=== PATIENT | female | born 1940 | race Caucasian/White ===

== ENCOUNTER → 2016-07-18 | Outpatient (CLI) | payer BC ==
[~2016-07-18] MED LIST: CYAN100020 PO; HRBLS PO; LISI-729 PO; LORA-741 PO; MULT-845 PO; OMEG10007 PO; PERM1CRE TOP; PRLSR20 PO
[2016-07-18 10:53] LABS: BASO % 1.4 %; BASO ABS # 0.09 K/uL (0-0.2); COMPLETE YES; EOS % 2.4 %; HEMATOCRIT 37.9 % (37-47); IG% 0.3 %; LYMPH % 31.9 %; LYMPH ABS # 2.12 K/uL (1.2-3.4); MEAN CELL VOLUME 94.3 fL (80-100); MEAN CORPUSCULAR HEMOGLOBIN 31.6 pg (25-34); MEAN CORPUSCULAR HGB CONC 33.5 g/dl (32-36); MEAN PLATELET VOLUME 9.3 fL (7.4-10.4); MONO % 8.4 %; NEUT % 55.6 %; PLATELET COUNT 412 K/uL (130-400); RED BLOOD COUNT 4.02 M/uL (4.2-5.4); WHITE BLOOD COUNT 6.64 K/uL (4.8-10.8)
[2016-07-18 11:04] LABS: ALT/SGPT 24 U/L (12-78); AST/SGOT 19 U/L (15-37); BLOOD UREA NITROGEN 14 mg/dl (7-18); BUN/CREATININE RATIO 22.5 (10-20); CALCIUM 8.9 mg/dl (8.5-10.1); CARBON DIOXIDE 31 mmol/L (21-32); CHLORIDE 109 mmol/L (98-107); CHOLESTEROL 187 mg/dl (0-200); CREATININE 0.64 mg/dl (0.60-1.20); GLUCOSE 89 mg/dl (70-99); POTASSIUM 4.1 mmol/L (3.5-5.1); SODIUM 144 mmol/L (136-145)
[2016-07-18 11:15] LABS: ALB/GLOB RATIO 0.9 (0.9-2); ALKALINE PHOSPHATASE 77 U/L (45-117); CHOLESTEROL/HDL RATIO 2.1; HDL CHOLESTEROL 87 mg/dl; LDL CHOLESTEROL CALCULATED 91 mg/dl; TRIGLYCERIDES 46 mg/dl (0-150); VERY LOW DENSITY LIPOPROT CALC 9 mg/dl
--- NOTE | 2016-07-23 11:07 | CODING QUERY MEDICAL NECESSITY ---
SUPPORTING DIAGNOSIS NEEDED Dr. Armas, A supporting diagnosis is required for the test/procedure performed on this patient in order for us to be reimbursed by the patient's insurance. Please provide a supporting diagnosis for the following test/procedure listed below next to the test name along with your signature. *If there is no additional diagnosis for this patient that would support the following test/procedure please document that below next to the test/procedure. Test(s)/Procedure(s) that require a supporting diagnosis: * ([id number]) VITAMIN D ASSAY DIAGNOSIS: DATE OF SERVICE: 07/18/16 Provider Signature: Date: Thank you Christopher Magdaleno [facility] Information Management Once completed, please kindly fax back to [phone] For questions please call [phone]
== END | disposition home or self-care (01) ==
LOC: C.LABBC 08:58
PROVIDERS: ATTEND Internal Medicine
DX: G25.0 Essential tremor (principal); M85.80 Other specified disorders of bone density and structure, unspecified site

== ENCOUNTER → 2016-12-14 | Outpatient (CLI) | payer BC ==
--- NOTE | 2016-12-14 15:33 | MAMMOGRAPHY REPORT ---
BILATERAL DIGITAL SCREENING MAMMOGRAM WITH CAD: 12/14/2016 CLINICAL HISTORY: Routine screening. Patient has no complaints. TECHNIQUE: Current study was also evaluated with a Computer Aided Detection (CAD) system. Bilateral CC and MLO views were obtained. COMPARISON: Comparison is made to exams dated: 12/13/2015 mammogram, 11/17/2014 mammogram, 12/03/2013 ma mmogram, 11/23/2013 mammogram, 11/16/2013 mammogram, and 11/05/2012 mammogram - [facility]. BREAST COMPOSITION: There are scattered areas of fibroglandular density in both breasts. FINDINGS: No suspicious masses, calcifications, or areas of architectural distortion are noted in ei ther breast. There has been no significant interval change compared to prior exams. Scattered bilater al benign-appearing calcifications are not significantly changed. IMPRESSION: ACR BI-RADS CATEGORY 2: BENIGN There is no mammographic evidence of malignancy. A 1 year screening mammogram is recommended. The pa tient will receive written notification of the results. Approximately 10% of breast cancers are not detected with mammography. A negative mammographic report should not delay biopsy if a clinically suggestive mass is present. Yulia Norman M.D. ah/:12/14/2016 11:53:43 Bias Machine Operator Helper: Sonal CARCAMO(Juan)(Latonya)(BD), [facility] letter sent: Normal 1/2 BI-RADS Code: ACR BI-RADS Category 2: Benign
== END | disposition home or self-care (01) ==
LOC: C.MAMM 10:55
PROVIDERS: ATTEND Internal Medicine
DX: Z12.31 Encounter for screening mammogram for malignant neoplasm of breast (principal)

== ENCOUNTER → 2017-01-23 | Outpatient (CLI) | payer BC ==
[2017-01-23 10:59] LABS: BASO % 1.3 %; BASO ABS # 0.09 K/uL (0-0.2); COMPLETE YES; HEMATOCRIT 40.4 % (37-47); IG% 0.1 %; LYMPH % 33.1 %; LYMPH ABS # 2.34 K/uL (1.2-3.4); MEAN CELL VOLUME 96.4 fL (80-100); MEAN CORPUSCULAR HEMOGLOBIN 32.2 pg (25-34); MEAN CORPUSCULAR HGB CONC 33.4 g/dl (32-36); MEAN PLATELET VOLUME 9.8 fL (7.4-10.4); MONO % 5.8 %; NEUT % 56.7 %; PLATELET COUNT 327 K/uL (130-400); RED BLOOD COUNT 4.19 M/uL (4.2-5.4); WHITE BLOOD COUNT 7.06 K/uL (4.8-10.8)
[2017-01-23 11:39] LABS: ALT/SGPT 17 U/L (12-78); BLOOD UREA NITROGEN 22 mg/dl (7-18); BUN/CREATININE RATIO 35.2 (10-20); CALCIUM 9.3 mg/dl (8.5-10.1); CARBON DIOXIDE 29 mmol/L (21-32); CHLORIDE 109 mmol/L (98-107); CREATININE 0.62 mg/dl (0.60-1.20); GLUCOSE 82 mg/dl (70-99); POTASSIUM 4.1 mmol/L (3.5-5.1); SODIUM 142 mmol/L (136-145)
[2017-01-23 11:42] LABS: ALB/GLOB RATIO 0.9 (0.9-2); ALKALINE PHOSPHATASE 75 U/L (45-117); AST/SGOT 17 U/L (15-37)
== END | disposition home or self-care (01) ==
LOC: C.LABBC 08:55
PROVIDERS: ATTEND Internal Medicine
DX: G14 Postpolio syndrome (principal); I10 Essential (primary) hypertension

== ENCOUNTER → 2017-06-17 | Outpatient (CLI) | payer BC ==
[2017-06-17 13:29] LABS: BASO % 1.3 %; BASO ABS # 0.08 K/uL (0-0.2); EOS % 2.2 %; EOS ABS # 0.14 K/uL (0-0.5); HEMATOCRIT 38.7 % (37-47); LYMPH % 41.6 %; LYMPH ABS # 2.59 K/uL (1.2-3.4); MEAN CELL VOLUME 96.5 fL (80-100); MEAN CORPUSCULAR HEMOGLOBIN 32.4 pg (25-34); MEAN CORPUSCULAR HGB CONC 33.6 g/dl (32-36); MEAN PLATELET VOLUME 9.7 fL (7.4-10.4); MONO % 7.4 %; MONO ABS # 0.46 K/uL (0.11-0.59); NEUT % 47.5 %; NEUT ABS # 2.96 K/uL (1.4-6.5); PLATELET COUNT 322 K/uL (130-400); RED CELL DISTRIBUTION WIDTH CV 15.3 % (11.5-14.5); RED CELL DISTRIBUTION WIDTH SD 54.3 fL (36.4-46.3); WHITE BLOOD COUNT 6.23 K/uL (4.8-10.8)
[2017-06-17 15:10] LABS: ALBUMIN 3.5 gm/dl (3.4-5.0); ALKALINE PHOSPHATASE 67 U/L (45-117); ALT/SGPT 22 U/L (12-78); AST/SGOT 15 U/L (15-37); BLOOD UREA NITROGEN 15 mg/dl (7-18); CALCIUM 9.2 mg/dl (8.5-10.1); CARBON DIOXIDE 27 mmol/L (21-32); CREATININE 0.66 mg/dl (0.60-1.20); GLUCOSE 86 mg/dl (70-99); POTASSIUM 4.3 mmol/L (3.5-5.1); SODIUM 138 mmol/L (136-145)
== END | disposition home or self-care (01) ==
LOC: C.LABBC 11:39
PROVIDERS: ATTEND Internal Medicine
DX: R53.83 Other fatigue (principal)

== ENCOUNTER → 2017-08-03 | Outpatient (CLI) | payer BC | END | disposition home or self-care (01) | LOC: C.LABSPEC 11:32 | PROVIDERS: ATTEND Internal Medicine | DX: R39.9 Unspecified symptoms and signs involving the genitourinary system (principal) ==

== ENCOUNTER 2021-02-05 01:58 | Inpatient (IN) ==
[2021-02-05 02:35] LABS: Basophils # (auto) 0.04 K/uL (0-0.2); Basophils % (auto) 0.4 %; Eosinophils # (auto) 0.18 K/uL (0-0.5); Eosinophils % (auto) 1.7 %; Hematocrit (blood only) 43.3 % (37-47); Hemoglobin 15.1 g/dL (12.0-16.0); Immature Granulocytes # (auto) 0.02 K/uL (0.00-0.02); Immature Granulocytes % (auto) 0.2 %; Lymphocytes # (auto) 3.69 K/uL (1.2-3.4); Lymphocytes % (auto) 34.3 %; Mean Corpuscular Hgb Conc 34.9 g/dL (32-36); Mean Corpuscular Volume 100.2 fL (80-100); Mean Platelet Volume 9.5 fL (7.4-10.4); Monocytes # (auto) 0.67 K/uL (0.11-0.59); Monocytes % (auto) 6.2 %; Neutrophils # (auto) 6.17 K/uL (1.4-6.5); Neutrophils % (auto) 57.2 %; Platelet Count 332 K/uL (130-400); RDW Coefficient of Variation 14.6 % (11.5-14.5); RDW Standard Deviation 53.6 fL (36.4-46.3); Red Blood Count 4.32 M/uL (4.2-5.4); White Blood Count 10.77 K/uL (4.8-10.8)
[2021-02-05 02:56] LABS: Appearance Urine Clear (Clear); Bacteria Urine Automated Negative (Negative); Bilirubin Urine Negative (Negative); Blood Urine Trace (Negative); Cast Urine Automated 0 /lpf (0-5); Color Urine Yellow; Epithelial Cell Urine Auto >30 /lpf (0-5); Glucose Urine UA Negative (Negative); Ketones Urine Negative (Negative); Leukocyte Esterase Urine 2+ (Negative); Nitrite Urine Negative (Negative); Protein Urine Negative (Negative); RBC Urine Automated 0-4 /hpf (0-4); Specific Gravity Urine 1.015 (1.000-1.030); Urobilinogen Urine Negative (Negative); WBC Urine Automated >30 /hpf (0-5)
[2021-02-05 03:02] LABS: Albumin Globulin Ratio 0.8 (0.9-2); Albumin Level 3.7 gm/dl (3.4-5.0); BUN Creatinine Ratio 19.3 (10-20); Bilirubin,Total 0.5 mg/dl (0.2-1); Calcium 9.2 mg/dl (8.5-10.1); Creatinine Clr Calc Pharmacy 42.4 ml/min; Est GFR (African American) 69.1 ml/min; Est GFR (Non-African American) 59.6 ml/min; Globulin 4.5 gm/dl (2.5-4.0); Total Protein 8.2 gm/dl (6.4-8.2)
[2021-02-05] MEDS ORDERED: HYDROmorphone INJ 1 MG/ML SYRINGE IV STA (03:09)
[2021-02-05] MEDS ORDERED: ONDANSETRON INJ 2 MG/ML 2 ML VIAL IV STA (03:09)
[2021-02-05] MEDS ORDERED: OPTIRAY 320 100ml IV ONE (04:01)
[2021-02-05 04:03] LABS: Potassium 4.1 mmol/L (3.5-5.1)
--- NOTE | 2021-02-05 05:06 | Emergency Department Note ---
Impression & Plan Partial small bowel obstruction The patient will be evaluated by the [facility] service ED Provider Note NAME: JOSEFINA EVANS AGE: 80 SEX: F ARRIVES VIA: Family Vehicle INFORMANT: [Patient ED PROVIDER(S): Jewels Bell DO CHIEF COMPLAINT: Abdominal pain PLAN: Disposition: Admission by the [facility] service Condition: Fair MEDICAL DECISION MAKING: This is a 80-year-old female patient who presents to emergency department with abdominal pain since 1:00 this afternoon. The patient has never had pain like this in the past. She has become nauseated. She feels bloated. The patient received IV analgesia and IV antiemetics here in the emergency department. CT scan shows evidence of a partial small bowel obstruction. Patient has had a remote history of a abdominal hysterectomy in 1978. She was placed on IV normal saline and bowel rest. She had no episodes of vomiting here in the emergency department. Triage Nursing notes reviewed and agree with them. Vital Signs: reviewed and remarkable for hypertension Differential diagnosis: Pancreatitis, cholecystitis, diverticulitis, ulcerative disease, gastritis, colitis, appendicitis ER treatment provided: IV Dilaudid and IV Zofran She was started on IV normal saline drip and the IV Dilaudid was repeated. Diagnostics interpreted by me: ECG: Normal sinus rhythm at a rate of [address] segment elevation or signs of ischemia. There is no ectopy. Cardiac Monitoring: Normal sinus rhythm at a rate of 80 Laboratory studies: See below Imaging studies: As per stat rad CT ABDOMEN & PELVIS With Contrast: Dilated loops of small bowel in the pelvis with some areas of fecal-like material in the small bowel. The findings are likely related to at least partial small bowel obstruction there appears to be an abrupt decision to nondilated small bowel within the left pelvis. No free intraperitoneal air or fluid. No other acute findings. An appendix is not clearly identified; however, there is no clear evidence of a distended appendix or regional inflammatory reaction. Diverticulosis without diverticulitis. HPI: 80/F arrives for evaluation of abdominal pain. The patient complains of abdominal pain and nausea over the past 8 hours. She describes significant bloating. She states that she just cannot get comfortable. She denies ever having pain like this in the past. Patient's only past surgical history is a previous hysterectomy many many years ago. Patient denies any urinary symptoms or diarrhea. ROS: See above HPI for pertinent positives & negatives. A total of 10 systems reviewed and were otherwise negative. PAST MEDICAL HISTORY:See Below PAST SURGICAL HISTORY:See Below FAMILY HISTORY:See Below SOCIAL HISTORY:See Below HOME MEDICATIONS:See list ALLERGIES:See list VITALS:See Below PHYSICAL EXAMINATION: HEENT: Head - normocephalic and atraumatic Pupils are equal, round, and reactive to light. Extraocular eye muscles are intact, and sclera are anicteric. Nose - moist nasal mucosa without discharge. Mouth - moist buccal mucosa. Oropharynx is nonerythematous and there is no tonsillar exudate or edema noted. Neck: Supple; no cervical lymphadenopathy or thyromegaly Heart: Regular rate and rhythm. There is a normal S1 and S2 with no murmurs, clicks, or gallops appreciated. Lungs: Clear to auscultation bilaterally with no wheezes, rales, or rhonchi. Abdomen: Soft, with mild tenderness to palpation just above the umbilicus. The patient has hypoactive bowel sounds. There are no palpable pulsatile masses or hepatosplenomegaly. There is no guarding, rigidity, or rebound noted. Extremities: No evidence of cyanosis, clubbing, or edema. There are easily palpable peripheral pulses. Skin: warm and dry with good turgor and no rashes. ED COURSE: Times/Reassessments: 0225: The patient was evaluated in room C3. A complete history and physical was performed. An IV lock was initiated and labs are drawn as above. The patient was given IV Dilaudid and Zofran for pain and nausea. She will go for CT scan of the abdomen and pelvis. A twelve-lead EKG was obtained as described above. An order was placed for continuous cardiac monitoring. The patient is in a normal sinus rhythm at a rate of 80. Upon repeat evaluation, the patient stated the pain was coming back. She will be given another dose of IV Dilaudid and started on a normal saline drip. I discussed the case with the [facility] hospitalist group and they will evaluate for further management Jewels Bell DO Past Med/Surg History Medical History Atelectasis, left Benign familial tremor Chronic pain syndrome Contact dermatitis Hypertension Insomnia Left hip pain Osteopenia Post-polio syndrome Precordial chest pain Reactive depression (situational) Second hand smoke exposure Syncope Surgical History H/O laparoscopy diagnostic History of dilation and curettage History of oral surgery History of repair of rotator cuff History of tonsillectomy History of total abdominal hysterectomy Family History Mother COPD (chronic obstructive pulmonary disease) Father Lung cancer Unknown Heart disease Parkinson disease Brother Myocardial infarction Diabetes Sister Diabetes Denies family history of Ovarian cancer Prostate cancer Breast cancer Colorectal cancer Stroke Social History Smoking Status: Never smoker Second Hand Exposure: No; Hx Alcohol Use: Yes Alcohol type: beer and wine Alcohol Intake Frequency: 4 or More x per/Week Hx Substance Use: No Preferred Language: Cymro Communication Ability: Effective Visual Impairment: Limited Hearing Ability: Normal Senior Storage Administrator Required: No marital status: / Current Living Situation: Alone and Other 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 How many Children do You have: 0 Feels Safe at Home: Yes Childhood Exposure to Second-Hand Smoke: Yes caffeine: Yes Dental Care, Regularly: Yes Physical Activity Frequency: 5-6 Times per Week Seatbelt Use: always Sunscreen Use: Yes Allergies Allergies Allergy/AdvReac Type Severity Reaction Status Date / Time codeine Allergy Nausea Verified 02/05/21 07:19 nitrofurantoin Allergy Verified 02/05/21 07:19 adhesive AdvReac Intermediate rash Verified 02/05/21 07:19 Home Meds Home Medications Medication Instructions Recorded Confirmed multivitamin (Daily Multi-Vitamin) 1 tab PO QAM 03/04/18 02/05/21 omega 3 350 mg-dha 235 mg-epa 90 See Rx Instructions .ROUTE .COMPLEX 03/04/18 02/05/21 mg-fish oil 597 mg capsule,delay rel ([place]-3) cyanocobalamin (vitamin B-12) 1,000 mcg PO Q2D 10/26/19 02/05/21 1,000 mcg tablet (Vitamin B-12) d-mannose 500 mg capsule (AZO 1,000 mg PO BID cap 10/07/20 02/05/21 D-Mannose) magnesium oxide 400 mg PO DAILY PRN 11/07/20 02/05/21 ascorbic acid (vitamin C) 1,000 mg 1,000 mg PO QAM 02/05/21 02/05/21 tablet (Vitamin C) cholecalciferol (vitamin D3) 50 3,000 unit PO QAM 02/05/21 02/05/21 mcg (2,000 unit) capsule (Vitamin D3) fluticasone 113 mcg-salmeterol 14 1 inh INH BID 02/05/21 02/05/21 mcg/actuation breath activated powdr (AirDuo RespiClick) lisinopril 10 mg tablet (Zestril) 10 mg PO QAM 02/05/21 02/05/21 lorazepam 0.5 mg tablet (Ativan) 0.5 - 1 mg PO DAILY PRN 02/05/21 02/05/21 Previous Rx's Medication Instructions Recorded metoprolol tartrate 25 mg tablet 25 mg PO Q12H PRN #15 tab 04/20/20 Results & Data (ED) Vital Signs Vital Signs - 24 hr 02/05/21 02:07 02/05/21 04:06 02/05/21 05:43 Temperature 36.5 C Temperature Source Temporal Artery Scan Pulse Rate 82 Pulse Rate [Apical] 80 80 Pulse Rate from SpO2 Sensor Pulse Rhythm [Apical] Regular Regular Pulse Strength [Apical] Normal Normal Respiratory Rate 20 16 16 Respiratory Effort / Characteristics Non-Labored Spontaneous Non-Labored Spontaneous Respiratory Depth Normal Normal Blood Pressure 143/77 H Blood Pressure [Right Arm] 172/78 H 155/67 H Blood Pressure Mean 99 Blood Pressure Mean [Right Arm] 109 96 Blood Pressure Position [Right Arm] Sitting Pulse Oximetry 97 93 95 Oxygen Delivery Method Room Air Room Air Room Air Sepsis Recent Fever Within 48 Hours No Sepsis New/Unexplained Change in Mental Status N/A Sepsis Action Taken by Nursing No Action Required 02/05/21 07:00 02/05/21 08:00 02/05/21 08:15 Temperature Temperature Source Pulse Rate 68 67 73 Pulse Rate [Apical] Pulse Rate from SpO2 Sensor 69 67 74 Pulse Rhythm [Apical] Pulse Strength [Apical] Respiratory Rate 18 11 L 14 Respiratory Effort / Characteristics Respiratory Depth Blood Pressure 122/68 Blood Pressure [Right Arm] Blood Pressure Mean 86 Blood Pressure Mean [Right Arm] Blood Pressure Position [Right Arm] Pulse Oximetry 99 97 97 Oxygen Delivery Method Room Air Room Air Room Air Sepsis Recent Fever Within 48 Hours Sepsis New/Unexplained Change in Mental Status Sepsis Action Taken by Nursing 02/05/21 08:30 02/05/21 09:00 02/05/21 11:00 Temperature Temperature Source Pulse Rate 74 65 67 Pulse Rate [Apical] Pulse Rate from SpO2 Sensor 74 67 Pulse Rhythm [Apical] Pulse Strength [Apical] Respiratory Rate 15 13 12 Respiratory Effort / Characteristics Respiratory Depth Blood Pressure 119/63 145/65 H Blood Pressure [Right Arm] Blood Pressure Mean 81 91 Blood Pressure Mean [Right Arm] Blood Pressure Position [Right Arm] Pulse Oximetry 98 94 Oxygen Delivery Method Room Air Sepsis Recent Fever Within 48 Hours Sepsis New/Unexplained Change in Mental Status Sepsis Action Taken by Nursing 02/05/21 12:00 02/05/21 14:38 02/05/21 15:08 Temperature Temperature Source Pulse Rate 72 72 Pulse Rate [Apical] 70 Pulse Rate from SpO2 Sensor Pulse Rhythm [Apical] Pulse Strength [Apical] Respiratory Rate 16 16 16 Respiratory Effort / Characteristics Non-Labored Respiratory Depth Normal Blood Pressure 128/60 128/62 Blood Pressure [Right Arm] 139/75 Blood Pressure Mean 82 84 Blood Pressure Mean [Right Arm] 96 Blood Pressure Position [Right Arm] Pulse Oximetry 94 94 95 Oxygen Delivery Method Room Air Room Air Sepsis Recent Fever Within 48 Hours Sepsis New/Unexplained Change in Mental Status Sepsis Action Taken by Nursing 02/05/21 15:19 Temperature Temperature Source Pulse Rate Pulse Rate [Apical] Pulse Rate from SpO2 Sensor Pulse Rhythm [Apical] Pulse Strength [Apical] Respiratory Rate Respiratory Effort / Characteristics Respiratory Depth Blood Pressure Blood Pressure [Right Arm] Blood Pressure Mean Blood Pressure Mean [Right Arm] Blood Pressure Position [Right Arm] Pulse Oximetry Oxygen Delivery Method Room Air Sepsis Recent Fever Within 48 Hours Sepsis New/Unexplained Change in Mental Status Sepsis Action Taken by Nursing Laboratory Data Result diagrams: 02/05/21 00:25 02/05/21 03:44 Lab Results 02/05/21 02/05/21 02/05/21 Range/Units 00:25 00:25 00:25 WBC 10.77 (4.8-10.8) K/uL RBC 4.32 (4.2-5.4) M/uL Hgb 15.1 (12.0-16.0) g/dL Hct 43.3 (37-47) % MCV 100.2 H (80-100) fL MCH 35.0 H (25-34) pg MCHC 34.9 (32-36) g/dL RDW Std Deviation 53.6 H (36.4-46.3) fL RDW Coeff of Sandip 14.6 H (11.5-14.5) % Plt Count 332 (130-400) K/uL MPV 9.5 (7.4-10.4) fL Immature Gran % (Auto) 0.2 % Neut % (Auto) 57.2 % Lymph % (Auto) 34.3 % [place] % (Auto) 6.2 % Eos % (Auto) 1.7 % Baso % (Auto) 0.4 % Neut # (Auto) 6.17 (1.4-6.5) K/uL Lymph # (Auto) 3.69 H (1.2-3.4) K/uL [place] # (Auto) 0.67 H (0.11-0.59) K/uL Eos # (Auto) 0.18 (0-0.5) K/uL Baso # (Auto) 0.04 (0-0.2) K/uL Immature Gran # (Auto) 0.02 (0.00-0.02) K/uL Sodium 139 (136-145) mmol/L Potassium (3.5-5.1) mmol/L Chloride 106 (98-107) mmol/L Carbon Dioxide 29 (21-32) mmol/L Anion Gap 4.0 (3-11) BUN 18 (7-18) mg/dl Creatinine 0.91 (0.6-1.2) mg/dl Est Cr Clr Drug Dosing 42.4 ml/min Est GFR ( Amer) 69.1 ml/min Est GFR (Non-Af Amer) 59.6 ml/min BUN/Creatinine Ratio 19.3 (10-20) Glucose 99 (70-99) mg/dl Calcium 9.2 (8.5-10.1) mg/dl Total Bilirubin 0.5 (0.2-1) mg/dl AST (15-37) U/L ALT 24 (12-78) U/L Alkaline Phosphatase 71 (45-117) U/L Total Protein 8.2 (6.4-8.2) gm/dl Albumin 3.7 (3.4-5.0) gm/dl Globulin 4.5 H (2.5-4.0) gm/dl Albumin/Globulin Ratio 0.8 L (0.9-2) Lipase 120 (73-393) U/L Urine Color Yellow Urine Appearance Clear (Clear) Urine pH 5.0 (4.5-7.5) Ur Specific [place] 1.015 (1.000-1.030) Urine Protein Negative (Negative) Urine Glucose (UA) Negative (Negative) Urine Ketones Negative (Negative) Urine Blood Trace H (Negative) Urine Nitrite Negative (Negative) Urine Bilirubin Negative (Negative) Urine Urobilinogen Negative (Negative) Ur Leukocyte Esterase 2+ H (Negative) Urine WBC (Auto) >30 H (0-5) /hpf Urine RBC (Auto) 0-4 (0-4) /hpf U Hyaline Cast (Auto) 0 (0-5) /lpf U Epithel Cells (Auto) >30 H (0-5) /lpf Urine Bacteria (Auto) Negative (Negative) COVID-19 Eval Order SARS-CoV-2 (PCR) (Negative) 02/05/21 02/05/21 02/05/21 Range/Units 03:44 06:04 06:04 WBC (4.8-10.8) K/uL RBC (4.2-5.4) M/uL Hgb (12.0-16.0) g/dL Hct (37-47) % MCV (80-100) fL MCH (25-34) pg MCHC (32-36) g/dL RDW Std Deviation (36.4-46.3) fL RDW Coeff of Sandip (11.5-14.5) % Plt Count (130-400) K/uL MPV (7.4-10.4) fL Immature Gran % (Auto) % Neut % (Auto) % Lymph % (Auto) % [place] % (Auto) % Eos % (Auto) % Baso % (Auto) % Neut # (Auto) (1.4-6.5) K/uL Lymph # (Auto) (1.2-3.4) K/uL [place] # (Auto) (0.11-0.59) K/uL Eos # (Auto) (0-0.5) K/uL Baso # (Auto) (0-0.2) K/uL Immature Gran # (Auto) (0.00-0.02) K/uL Sodium (136-145) mmol/L Potassium 4.1 (3.5-5.1) mmol/L Chloride (98-107) mmol/L Carbon Dioxide (21-32) mmol/L Anion Gap (3-11) BUN (7-18) mg/dl Creatinine (0.6-1.2) mg/dl Est Cr Clr Drug Dosing ml/min Est GFR ( Amer) ml/min Est GFR (Non-Af Amer) ml/min BUN/Creatinine Ratio (10-20) Glucose (70-99) mg/dl Calcium (8.5-10.1) mg/dl Total Bilirubin (0.2-1) mg/dl AST 14 L (15-37) U/L ALT (12-78) U/L Alkaline Phosphatase (45-117) U/L Total Protein (6.4-8.2) gm/dl Albumin (3.4-5.0) gm/dl Globulin (2.5-4.0) gm/dl Albumin/Globulin Ratio (0.9-2) Lipase (73-393) U/L Urine Color Urine Appearance (Clear) Urine pH (4.5-7.5) Ur Specific [place] (1.000-1.030) Urine Protein (Negative) Urine Glucose (UA) (Negative) Urine Ketones (Negative) Urine Blood (Negative) Urine Nitrite (Negative) Urine Bilirubin (Negative) Urine Urobilinogen (Negative) Ur Leukocyte Esterase (Negative) Urine WBC (Auto) (0-5) /hpf Urine RBC (Auto) (0-4) /hpf U Hyaline Cast (Auto) (0-5) /lpf U Epithel Cells (Auto) (0-5) /lpf Urine Bacteria (Auto) (Negative) COVID-19 Eval Order Covid19 at [facility] SARS-CoV-2 (PCR) NEGATIVE (Negative) Administered Medications Sodium Chloride (Nss) 500 mls @ 100 mls/hr IV .Q5H RITA Stop: 03/07/21 05:59 Last Infusion: 02/05/21 15:31 Dose: 0 mls/hr Documented by: [id number] Admin: 02/05/21 10:16 Dose: 100 mls/hr Documented by: [id number] Infusion: 02/05/21 10:15 Dose: 0 mls/hr Documented by: [id number] Admin: 02/05/21 06:11 Dose: 125 mls/hr Documented by: [id number] Morphine Sulfate (Morphine Sulfate 2 Mg/Ml Carp) 2 mg IV Q4 PRN PRN Reason: Pain2-6/10 Stop: 02/19/21 10:36 Last Admin: 02/05/21 15:11 Dose: 2 mg Documented by: [id number] Admin: 02/05/21 10:57 Dose: 2 mg Documented by: [id number] Ondansetron HCl (Ondansetron Inj 2 Mg/Ml 2 Ml Vial) 4 mg IV Q6H PRN PRN Reason: Nausea Stop: 03/07/21 10:36 Last Admin: 02/05/21 10:57 Dose: 4 mg Documented by: [id number] Discontinued Medications Hydromorphone HCl (Hydromorphone Inj 1 Mg/Ml Syringe) 1 mg IV NOW STA Stop: 02/05/21 03:10 Last Admin: 02/05/21 03:29 Dose: 1 mg Documented by: [id number] Hydromorphone HCl (Hydromorphone Inj 0.5 Mg/0.5 Ml Syr) 0.5 mg IV NOW STA Stop: 02/05/21 05:49 Last Admin: 02/05/21 06:10 Dose: 0.5 mg Documented by: [id number] Ioversol (Optiray 320 100ml) 94 ml IV ONCE ONE Stop: 02/05/21 04:02 Last Admin: 02/05/21 03:58 Dose: 94 ml Documented by: [id number] Ondansetron HCl (Ondansetron Inj 2 Mg/Ml 2 Ml Vial) 4 mg IV NOW STA Stop: 02/05/21 03:10 Last Admin: 02/05/21 03:29 Dose: 4 mg Documented by: [id number] Imaging Data Radiologist's Impression: Abdomen/Pelvis CT 02/05/21 03:10 CT OF THE ABDOMEN AND PELVIS WITH CONTRAST CLINICAL HISTORY: Epigastric abdominal pain. Nausea. COMPARISON STUDY: CT of the abdomen and pelvis September 03, 2020. Renal ultrasound December 26, 2020. TECHNIQUE: Following IV administration of 94 mL of Optiray, axial images of the abdomen and pelvis were obtained from the lung bases to the proximal femurs. Images were reviewed in the axial, sagittal, and coronal planes. IV contrast was administered without complication. Automated exposure control was utilized for the study. A dose lowering technique was utilized adhering to the principles of ALARA. CT DOSE: 449.25 mGy.cm FINDINGS: A tubular density within the right lower lobe is unchanged since CT of July 11, 2018. This may reflect a mucoid impacted bronchus. No pneumatosis, free air or portal venous gas is present. Stomach is mildly distended and fluid- filled. The liver, spleen, adrenal glands and pancreas are unremarkable. Multiple renal cysts are noted. Numerous subcentimeter renal lesions are too small to characterize. There is no hydronephrosis. Multiple mid small bowel loops are mildly dilated and fluid-filled. Transition point within the lower central abdomen on axial image 286 of 476 is noted. The more distal small bowel is decompressed. Associated mesenteric infiltration is noted. A small amount of fluid within the pelvis is noted. There is no abscess. Major vasculature is patent. No lymphadenopathy is present. There is sigmoid diverticulosis without evidence for acute diverticulitis. IMPRESSION: Findings consistent with a small bowel obstruction. Transition point within the lower central abdomen. Distal small bowel decompressed. Associated mesenteric infiltration and a small amount of ascites. No pneumatosis, free air or portal venous gas. ACT 112: Negative or not required by law. Electronically signed by: Temo Andino M.D. 02/05/2021 8:42 AM Discharge Plan Visit Data Chief Complaint: Abdominal Pain Stated Complaint: ABD PAIN ED Provider: Jewels Bell Discharge Problem: Partial small bowel obstruction Discharge Instructions Interventions: ED Discharge Assessment Last Done: 02/05/21 15:19
[2021-02-05] MEDS ORDERED: HYDROmorphone INJ 0.5 MG/0.5 ML SYR IV STA (05:48)
[2021-02-05] MEDS: SODIUM CHLORIDE 0.9% 500 ML IV SCH ×3 (06:11→16:55)
--- NOTE | 2021-02-05 07:44 | History & Physical Report ---
Date of Service February 05, 2021 Assessment & Plan (1) Small bowel obstruction: Plan: Patient presents with abdominal pain since 1:00. Has a distant history of a total abdominal hysterectomy. CT scan consistent with small bowel obstruction. Patient will be admitted for bowel rest surgical consultation. Oral medications will be held, if blood pressure control is required we will use parenteral hydralazine (2) Diastolic CHF: Plan: Patient be kept n.p.o. she will be given maintenance IV fluids volume status will be watched carefully given her history of chronic diastolic heart failure (3) Reactive airway disease: Plan: Patient be continued on fluticasone salmeterol (4) DVT prophylaxis: Plan: Heparin subcu for DVT prevention History of Present Illness Primary Care Provider: Carlos Alberto Armas MD 80 F presents with abdominal pain, found to have partial sbo, previously had Hysterectomy, pain began abruptly at 1 pm in the afternoon the day before, upper abdomen Pt not vomiting and did not have NGT Allergies Allergy/AdvReac Type Severity Reaction Status Date / Time codeine Allergy Nausea Verified 02/05/21 07:19 nitrofurantoin Allergy Verified 02/05/21 07:19 adhesive AdvReac Intermediate rash Verified 02/05/21 07:19 Home Medications Medication Instructions Recorded Confirmed Type multivitamin (Daily Multi-Vitamin) 1 tab PO QAM 03/04/18 02/05/21 History omega 3 350 mg-dha 235 mg-epa 90 See Rx Instructions .ROUTE .COMPLEX 03/04/18 02/05/21 History mg-fish oil 597 mg capsule,delay rel ([place]-3) cyanocobalamin (vitamin B-12) 1,000 mcg PO Q2D 10/26/19 02/05/21 History 1,000 mcg tablet (Vitamin B-12) metoprolol tartrate 25 mg tablet 25 mg PO Q12H PRN #15 tab 04/20/20 02/05/21 Rx d-mannose 500 mg capsule (AZO 1,000 mg PO BID cap 10/07/20 02/05/21 History D-Mannose) magnesium oxide 400 mg PO DAILY PRN 11/07/20 02/05/21 History ascorbic acid (vitamin C) 1,000 mg 1,000 mg PO QAM 02/05/21 02/05/21 History tablet (Vitamin C) cholecalciferol (vitamin D3) 50 3,000 unit PO QAM 02/05/21 02/05/21 History mcg (2,000 unit) capsule (Vitamin D3) fluticasone 113 mcg-salmeterol 14 1 inh INH BID 02/05/21 02/05/21 History mcg/actuation breath activated powdr (AirDuo RespiClick) lisinopril 10 mg tablet (Zestril) 10 mg PO QAM 02/05/21 02/05/21 History lorazepam 0.5 mg tablet (Ativan) 0.5 - 1 mg PO DAILY PRN 02/05/21 02/05/21 History Past Med/Surg History Medical History Atelectasis, left Benign familial tremor Chronic pain syndrome Contact dermatitis Hypertension Insomnia Left hip pain Osteopenia Post-polio syndrome Precordial chest pain Reactive depression (situational) Second hand smoke exposure Syncope Surgical History H/O laparoscopy diagnostic History of dilation and curettage History of oral surgery History of repair of rotator cuff History of tonsillectomy History of total abdominal hysterectomy Family History Mother COPD (chronic obstructive pulmonary disease) Father Lung cancer Unknown Heart disease Parkinson disease Brother Myocardial infarction Diabetes Sister Diabetes Denies family history of Ovarian cancer Prostate cancer Breast cancer Colorectal cancer Stroke Social History Smoking Status: Never smoker Second Hand Exposure: No; Hx Alcohol Use: Yes Alcohol type: wine Alcohol Intake Frequency: 4 or More x per/Week Hx Substance Use: No Preferred Language: Ukrainian Communication Ability: Effective Visual Impairment: Limited Hearing Ability: Normal Online Content Developer Required: No Beliefs That Will Affect Care: None marital status: / Current Living Situation: Alone 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 How many Children do You have: 1 Feels Safe at Home: Yes Safety Concerns: Feels Safe At This Time Childhood Exposure to Second-Hand Smoke: Yes caffeine: Yes Dental Care, Regularly: Yes Physical Activity Frequency: 5-6 Times per Week Seatbelt Use: always Sunscreen Use: Yes Assistive Devices: Glasses Review of Systems Review of Systems: moderatedistress and fatigue no headache, no visual changes no speech or swallowing issues no chest pain, pressure or palpitations no shortness of breath, cough or wheezes epigastric abdominal pain, did have nausea & vomiting, no bowel movement since 02/04 no dysuria, hematuria or frequency no focal joint pain or swelling no back pain, CVA tenderness or radicular pain no bruising, bleeding or rashes no focal signs of weakness or numbness or altered sensation no complaints of anxiety or depression.. Physical Exam Physical Exam: The patient appeared well nourished and normally developed. moderate discomfort Vital signs as documented. Head exam is normocephalic atraumatic Neck is without JVD, thyromegaly, or carotid bruits. Lungs are clear to auscultation, no focal loss of breath sounds Cardiac exam, Rhythm is regular.. No murmurs, rubs or gallops. Abdominal exam reveals hypoactive bowel sounds, soft tender in lower quadrants Extremities are nonedematous and both pedal pulses are present Neurologic exam is alert and oriented, no focal loss of strength or sensation Skin is without bruises or rashes Psychologically is without concerns for anxiety or depression Results & Data Results & Data ([facility]) Vital Signs (Past 12 Hours) Vital Signs Temp Pulse Pulse Resp BP BP Pulse Ox 02/05/21 05:43 80 16 155/67 H 95 02/05/21 04:06 80 16 172/78 H 93 02/05/21 02:07 97.7 F 82 20 143/[address] scan per stat rad partial small bowel obstruction ECG Additional Comments: EKG shows normal sinus rhythm without any ST or T wave changes patient does exhibit baseline tremor as per her history PG Care Time/CCT Total # of Minutes Spent Total Time Spent with Patient: Total time spent is greater than 50% in coordination of care (as documented) at patient's floor/unit and/or counseling patient: Coding Level of Care Code 02018 Initial Inpt Care Lvl 2 Diagnoses Diastolic CHF I50.30 Small bowel obstruction K56.609 Reactive airway disease J45.909 DVT prophylaxis Z29.9
--- NOTE | 2021-02-05 08:43 | CT Scan Report ---
CT OF THE ABDOMEN AND PELVIS WITH CONTRAST CLINICAL HISTORY: Epigastric abdominal pain. Nausea. COMPARISON STUDY: CT of the abdomen and pelvis September 03, 2020. Renal ultrasound December 26, 2020. TECHNIQUE: Following IV administration of 94 mL of Optiray, axial images of the abdomen and pelvis we re obtained from the lung bases to the proximal femurs. Images were reviewed in the axial, sagittal, and coronal planes. IV contrast was administered without complication. Automated exposure control wa s utilized for the study. A dose lowering technique was utilized adhering to the principles of ALARA . CT DOSE: 449.25 mGy.cm FINDINGS: A tubular density within the right lower lobe is unchanged since CT of July 11, 2018. This may reflect a mucoid impacted bronchus. No pneumatosis, free air or portal venous gas is present. St omach is mildly distended and fluid-filled. The liver, spleen, adrenal glands and pancreas are unrema rkable. Multiple renal cysts are noted. Numerous subcentimeter renal lesions are too small to charact erize. There is no hydronephrosis. Multiple mid small bowel loops are mildly dilated and fluid-filled . Transition point within the lower central abdomen on axial image 286 of 476 is noted. The more dist al small bowel is decompressed. Associated mesenteric infiltration is noted. A small amount of fluid within the pelvis is noted. There is no abscess. Major vasculature is patent. No lymphadenopathy is p resent. There is sigmoid diverticulosis without evidence for acute diverticulitis. IMPRESSION: Findings consistent with a small bowel obstruction. Transition point within the lower ce ntral abdomen. Distal small bowel decompressed. Associated mesenteric infiltration and a small amount of ascites. No pneumatosis, free air or portal venous gas. ACT 112: Negative or not required by law. Electronically signed by: Temo Andino M.D. 02/05/2021 8:42 AM
[2021-02-05] MEDS: MoRPHine SULFATE 2 MG/ML CARP IV PRN ×2 (10:57→15:11)
[2021-02-05] MEDS: ONDANSETRON INJ 2 MG/ML 2 ML VIAL IV PRN ×2 (10:57→19:15)
[2021-02-05] MEDS ORDERED: hydrALAZINE HCL 20 MG/ML VIAL IV PRN (16:05)
[2021-02-05] MEDS ORDERED: LORazepam 0.5 MG/1 ML VIAL IV PRN (16:05)
[2021-02-05] MEDS ORDERED: ACETAMINOPHEN 1000 MG/100 ML IV IV PRN (16:05)
[2021-02-05] MEDS: SODIUM CHLORIDE 0.9% 1000ML 1,000 ML IV SCH (17:38)
[2021-02-05] MEDS: HEPARIN SOD 5,000 UNIT/0.5 ML VIAL SQ SCH (20:28)
[2021-02-05] MEDS: MoRPHine SULFATE 4 MG/ML 1 ML CARP\\VIAL IV PRN (20:28)
[2021-02-06] MEDS: SODIUM CHLORIDE 0.9% 1000ML 1,000 ML IV SCH (02:46)
--- NOTE | 2021-02-06 05:56 | Electrocardiogram Report ---
Test Reason : Blood Pressure : / mmHG Vent. Rate : 072 BPM Atrial Rate : 072 BPM P-R Int : 154 ms QRS Dur : 084 ms QT Int : 402 ms P-R-T Axes : 065 037 078 degrees QTc Int : 440 ms Normal sinus rhythm Possible Left atrial enlargement Cannot rule out Anterior infarct , age undetermined Abnormal ECG When compared with ECG of 04-MAR-2018 13:52, No significant change was found Confirmed by Sina Diaz ([id number]) on 02/06/2021 5:56:14 AM Referred By: REFERRED SELF Confirmed By:Sina Diaz
[2021-02-06] MEDS: ONDANSETRON INJ 2 MG/ML 2 ML VIAL IV PRN (07:41)
[2021-02-06] MEDS: MoRPHine SULFATE 4 MG/ML 1 ML CARP\\VIAL IV PRN ×2 (07:41→19:04)
[2021-02-06] MEDS: HEPARIN SOD 5,000 UNIT/0.5 ML VIAL SQ SCH ×2 (07:41→20:35)
--- NOTE | 2021-02-06 08:46 | XRay Report ---
XR KUB/Abdomen 1 view CLINICAL HISTORY: sbo eval for resolution TECHNIQUE: 1 view of the abdomen was obtained. Comparison: Comparison is made to CT abdomen and pelvis 02/05/2021 FINDINGS: Lung bases are unremarkable. The osseous structures are grossly unremarkable. Again noted is right lo wer quadrant bowel dilation to 3.7 cm, this is similar in appearance to prior exam. Small stool burde n is seen. IMPRESSION: Redemonstration of small bowel obstruction. ACT 112: Negative or not required by law. Electronically signed by: John Saini M.D. 02/06/2021 8:45 AM
[2021-02-06] MEDS: D5W AND LACTATED RINGERS 1,000 ML IV SCH (12:03)
[2021-02-06] MEDS: SALMETEROL INH SCH ×2 (13:52→20:36)
[2021-02-06] MEDS: FLUTICASONE INH SCH ×2 (13:52→20:36)
--- NOTE | 2021-02-06 18:01 | Hospitalist Progress Note ---
Date of Service February 06, 2021 Assessment & Plan (1) Small bowel obstruction: Plan: -Suspected to be mechanical -Patient is up-to-date with colonoscopy -Prior abdominal surgeries include JAVAN with BSO -Seems to be responding favorably to conservative management (n.p.o. for bowel rest). Abdominal pain improving and she is starting to develop flatus -We will allow some sips of clears and further advance diet as tolerated -Follow-up KUB in the a.m. -Lengthy discussion with patient regarding the importance of ambulation -IV pain medication as needed but would like to avoid narcotics if possible given decreased peristalsis -continue IVF but decrease rate given initiation of some oral intake (2) Post-polio syndrome: Plan: -Patient uses braces for legs for ambulation (3) Diastolic CHF: Plan: -no s/s volume overload -decrease IVF rate and watch closely for S/S volume overload (4) Reactive airway disease: Plan: continue fluticasone salmeterol (5) DVT prophylaxis: Plan: Heparin subcu for DVT prevention Admission and Anticipated Discharge Date Admission Date: February 05, 2021 Subjective Patient seen on daily rounds today. Hospitalized yesterday with small bowel obstruction. BSO. White count was normal. This morning, reports still having mild/intermittent abdominal pain/cramping (was constant INFORMATION TECHNOLOGY SECURITY ANALYST). Has not had any flatus. Denies nausea or vomiting. Lengthy discussion with patient regarding importance of ambulation and potential need for NG tube. She was reassessed later in the day and did start to have flatus. Abdominal pain/cramping overall improved. Review of Systems Review of Systems: All systems reviewed and are unremarkable except as noted in HPI and below Denies fevers, chills, headache, nasal congestion, sore throat, cough, chest pain, shortness of breath, palpitations, orthopnea, PND, nausea, vomiting, diarrhea, constipation, dysuria, hematuria, frequency, back pain, joint pain or swelling, easy bruising or bleeding, skin lesions or rashes. Physical Exam Physical Exam: General: Resting comfortably in her hospital bed. Does not appear ill or toxic. NAD. HEENT: Head is AT/NC buccal mucosa is moist and pink Neck: No JVD. Negative hepatojugular reflex Cardiac: RRR without M/G/R Lungs: CTA without W/R/R Abdomen: Abdomen is mildly distended. Hypoactive bowel sounds in the right upper quadrant. Scant/high trickling sounds in the other quadrants. Abdomen is, however soft. Slightly tender in the left upper quadrant Extremities: No peripheral clubbing cyanosis or edema Neuro: A&O X4 cranial nerves II through XII are grossly intact no focal neuro deficits Skin: No obvious skin lesions or rashes Psych: Appropriate affect pleasant and cooperative Results & Data Results & Data ([facility]) Vital Signs (Past 12 Hours) Vital Signs Temp Pulse Resp BP Pulse Ox 02/06/21 15:14 36.8 C 67 17 160/94 H 95 02/06/21 07:49 37.0 C 82 17 172/88 H 91 Laboratory Results 02/05/21 00:25 02/05/21 03:44 Diagnostic Findings KUB today: IMPRESSION: Redemonstration of small bowel obstruction. PG Care Time/CCT Total # of Minutes Spent Total Time Spent with Patient: Total time spent is greater than 50% in coordination of care (as documented) at patient's floor/unit and/or counseling patient: Coding Level of Care Code 49364 Subseq Hosp Care Lvl 2 Diagnoses Small bowel obstruction K56.609 Diastolic CHF I50.30 Reactive airway disease J45.909 DVT prophylaxis Z29.9 Post-polio syndrome G14
[2021-02-07] MEDS: D5W AND LACTATED RINGERS 1,000 ML IV SCH ×2 (00:35→16:05)
[2021-02-07 07:44] LABS: Basophils # (auto) 0.02 K/uL (0-0.2); Basophils % (auto) 0.3 %; Eosinophils % (auto) 1.3 %; Hemoglobin 13.7 g/dL (12.0-16.0); Immature Granulocytes # (auto) 0.01 K/uL (0.00-0.02); Immature Granulocytes % (auto) 0.1 %; Lymphocytes # (auto) 1.78 K/uL (1.2-3.4); Lymphocytes % (auto) 22.8 %; Mean Corpuscular Hemoglobin 33.1 pg (25-34); Mean Corpuscular Hgb Conc 32.6 g/dL (32-36); Mean Corpuscular Volume 101.4 fL (80-100); Mean Platelet Volume 9.5 fL (7.4-10.4); Monocytes # (auto) 0.66 K/uL (0.11-0.59); Monocytes % (auto) 8.5 %; Neutrophils # (auto) 5.23 K/uL (1.4-6.5); Platelet Count 279 K/uL (130-400); RDW Coefficient of Variation 14.7 % (11.5-14.5); Red Blood Count 4.14 M/uL (4.2-5.4)
[2021-02-07 08:15] LABS: BUN Creatinine Ratio 20.4 (10-20); Calcium 8.8 mg/dl (8.5-10.1); Creatinine Clr Calc Pharmacy 65.4 ml/min; Est GFR (African American) 100.3 ml/min; Est GFR (Non-African American) 86.6 ml/min; Magnesium 2.1 mg/dl (1.8-2.4); Potassium 3.7 mmol/L (3.5-5.1)
--- NOTE | 2021-02-07 09:09 | XRay Report ---
XR KUB/Abdomen 1 view CLINICAL HISTORY: FU on SBO TECHNIQUE: 1 view of the abdomen was obtained. Comparison: Comparison is made to abdomen one view 02/06/2021 FINDINGS: Lung bases are unremarkable. The osseous structures are grossly unremarkable. Multiple loops of small bowel are seen, dilated with gas, measuring up to 41 mm. A moderate amount of stool is noted within the large bowel. IMPRESSION: Continued dilation of small bowel loops compatible with small bowel obstruction. ACT 112: Negative or not required by law. Electronically signed by: John Saini M.D. 02/07/2021 9:08 AM
[2021-02-07] MEDS: SALMETEROL INH SCH ×2 (09:44→21:15)
[2021-02-07] MEDS: FLUTICASONE INH SCH ×2 (09:44→21:15)
[2021-02-07] MEDS: HEPARIN SOD 5,000 UNIT/0.5 ML VIAL SQ SCH ×2 (11:18→21:15)
--- NOTE | 2021-02-07 14:43 | Fluoroscopy Report ---
FL small bowel follow through utilizing Optiray CLINICAL HISTORY: assess transit time and for transition point (SBO) COMPARISON STUDY: CT of the abdomen and pelvis February 05, 2021. KUB February 07, 2021. FLUOROSCOPY TIME: 0 seconds. FLUOROSCOPIC IMAGES: 0 PROCEDURE AND FINDINGS: Initially, blade operator KUB was obtained. This demonstrates several loops of mildly dilated small bowel which are similar in appearance to prior KUB. Patient then ingested 300 cc of Opt iray 300 diluted with 300 cc of water. Overhead images were then obtained. There was mild dilatation of multiple mid abdominal small bowel loops. A well-defined transition point was not identified. Mirza sit time to the colon was approximately 1 hour and 15 minutes. Mucosal detail is diminished given sin gle contrast technique. IMPRESSION: Persistent mild small bowel dilatation. However, contrast reached the colon in one hour and 15 minutes. Therefore, there is no evidence for a high-grade small bowel obstruction. The finding s suggest a persistent partial small bowel obstruction. ACT 112: Negative or not required by law. Electronically signed by: Temo Andino M.D. 02/07/2021 2:42 PM
--- NOTE | 2021-02-07 16:11 | Hospitalist Progress Note ---
Date of Service February 07, 2021 Assessment & Plan (1) Small bowel obstruction: Plan: -Suspected to be mechanical -Patient is up-to-date with colonoscopy -Prior abdominal surgeries include JAVAN with BSO -Seems to be responding favorably to conservative management (n.p.o. for bowel rest). Abdominal pain improving and she is starting to develop flatus -SBFT done which seemed to not only be diagnostic but somewhat therapeutic as she is now having bowel movements. It did show a partial SBO with normal transit time -We will initiate clear liquids and further advance as tolerated. Suspect patient likely has underlying adhesions (2) Post-polio syndrome: Plan: -Patient uses braces for legs for ambulation (3) Diastolic CHF: Plan: -no s/s volume overload -IVF on board at variable rate. Will DC once tolerating oral intake (4) Reactive airway disease: Plan: continue fluticasone salmeterol (5) DVT prophylaxis: Plan: Heparin subcu for DVT prevention Admission and Anticipated Discharge Date Admission Date: February 05, 2021 Subjective Patient seen on daily rounds today. When seen earlier this morning she was passing flatus but had not yet had a BM. Overall her abdominal pain was significantly improved and she was not having nausea or vomiting. A small bowel follow-through was subsequently ordered showing persistent dilated loops of bowel consistent with partial small bowel obstruction but normal transit time. Following, patient did have a bowel movement. Review of Systems Review of Systems: All systems reviewed and are unremarkable except as noted in HPI and below Denies fevers, chills, headache, nasal congestion, sore throat, cough, chest pain, shortness of breath, palpitations, orthopnea, PND, abdominal pain, nausea, vomiting, diarrhea, constipation, dysuria, hematuria, frequency, back pain, joint pain or swelling, easy bruising or bleeding, skin lesions or rashes. Physical Exam Physical Exam: General: Resting comfortably- standing at bedside getting ready to walk the halls. NAD. HEENT: Head is AT/NC buccal mucosa is moist and pink Neck: No JVD. Negative hepatojugular reflex Cardiac: RRR with 2/6 VANESA Lungs: CTA without W/R/R Abdomen: Normoactive X4. Abd still slightly distended but soft. NT throughout Extremities: No peripheral clubbing cyanosis or edema Neuro: A&O X4 cranial nerves II through XII are grossly intact no focal neuro deficits Skin: No obvious skin lesions or rashes Psych: Appropriate affect pleasant and cooperative Results & Data Results & Data ([facility]) Vital Signs (Past 12 Hours) Vital Signs Temp Pulse Resp BP Pulse Ox 02/07/21 14:48 36.8 C 89 17 156/80 H 93 02/07/21 07:43 36.7 C 81 17 150/70 H 93 Laboratory Results 02/07/21 07:24 02/07/21 07:24 Diagnostic Findings Small bowel follow-through: PROCEDURE AND FINDINGS: Initially, director specialty KUB was obtained. This demonstrates several loops of mildly dilated small bowel which are similar in appearance to prior KUB. Patient then ingested 300 cc of Optiray 300 diluted with 300 cc of water. Overhead images were then obtained. There was mild dilatation of multiple mid abdominal small bowel loops. A well-defined transition point was not identified. Transit time to the colon was approximately 1 hour and 15 minutes. Mucosal detail is diminished given single contrast technique. IMPRESSION: Persistent mild small bowel dilatation. However, contrast reached the colon in one hour and 15 minutes. Therefore, there is no evidence for a high-grade small bowel obstruction. The findings suggest a persistent partial small bowel obstruction. PG Care Time/CCT Total # of Minutes Spent Total Time Spent with Patient: Total time spent is greater than 50% in coordination of care (as documented) at patient's floor/unit and/or counseling patient: Coding Level of Care Code 57695 Subseq Hosp Care Lvl 2 Diagnoses Small bowel obstruction K56.609 Post-polio syndrome G14 Diastolic CHF I50.30 Reactive airway disease J45.909 DVT prophylaxis Z29.9
[2021-02-07] MEDS: ONDANSETRON INJ 2 MG/ML 2 ML VIAL IV PRN (21:15)
[2021-02-08] MEDS ORDERED: MELATONIN 3 MG TAB PO PRN (01:51)
[2021-02-08] MEDS ORDERED: MELATONIN 3 MG TAB PO ONE (02:02)
[2021-02-08] MEDS: D5W AND LACTATED RINGERS 1,000 ML IV SCH (09:22)
[2021-02-08] MEDS: HEPARIN SOD 5,000 UNIT/0.5 ML VIAL SQ SCH (09:22)
[2021-02-08] MEDS: SALMETEROL INH SCH (09:23)
[2021-02-08] MEDS: FLUTICASONE INH SCH (09:23)
--- NOTE | 2021-02-08 16:25 | Discharge Summary ---
Date of Service February 08, 2021 Admission HPI Per Admitting Provider 80 F presents with abdominal pain, found to have partial sbo, previously had Hysterectomy, pain began abruptly at 1 pm in the afternoon the day before, upper abdomen Pt not vomiting and did not have NGT Principal Diagnosis 1. Small bowel obstructionpresumed mechanical Discharge Exam General: Resting comfortably- standing at bedside getting ready to walk the halls. NAD. HEENT: Head is AT/NC buccal mucosa is moist and pink Neck: No JVD. Negative hepatojugular reflex Cardiac: RRR with 2/6 VANESA Lungs: CTA without W/R/R Abdomen: Normoactive X4. Abd still slightly distended but soft. NT throughout Extremities: No peripheral clubbing cyanosis or edema Neuro: A&O X4 cranial nerves II through XII are grossly intact no focal neuro deficits Skin: No obvious skin lesions or rashes Psych: Appropriate affect pleasant and cooperative Discharge Data Allergies Allergy/AdvReac Type Severity Reaction Status Date / Time codeine Allergy Nausea Verified 02/05/21 07:19 nitrofurantoin Allergy Verified 02/05/21 07:19 adhesive AdvReac Intermediate rash Verified 02/05/21 07:19 Consultations 02/05/21 05:40 ED Decision to Admit Stat Ordered Studies 02/05/21 03:10 CT abd pelvis IV con only Urgent FINDINGS: A tubular density within the right lower lobe is unchanged since CT of July 11, 2018. This may reflect a mucoid impacted bronchus. No pneumatosis, free air or portal venous gas is present. Stomach is mildly distended and fluid- filled. The liver, spleen, adrenal glands and pancreas are unremarkable. Multiple renal cysts are noted. Numerous subcentimeter renal lesions are too small to characterize. There is no hydronephrosis. Multiple mid small bowel loops are mildly dilated and fluid-filled. Transition point within the lower central abdomen on axial image 286 of 476 is noted. The more distal small bowel is decompressed. Associated mesenteric infiltration is noted. A small amount of fluid within the pelvis is noted. There is no abscess. Major vasculature is patent. No lymphadenopathy is present. There is sigmoid diverticulosis without evidence for acute diverticulitis. IMPRESSION: Findings consistent with a small bowel obstruction. Transition point within the lower central abdomen. Distal small bowel decompressed. Associated mesenteric infiltration and a small amount of ascites. No pneumatosis, free air or portal venous gas. 02/06/21- KUB: IMPRESSION: Redemonstration of small bowel obstruction. 02/07/21 KUB: IMPRESSION: Continued dilation of small bowel loops compatible with small bowel obstruction. 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 This demonstrates several loops of mildly dilated small bowel which are similar in appearance to prior KUB. Patient then ingested 300 cc of Optiray 300 diluted with 300 cc of water. Overhead images were then obtained. There was mild dilatation of multiple mid abdominal small bowel loops. A well-defined transition point was not identified. Transit time to the colon was approximately 1 hour and 15 minutes. Mucosal detail is diminished given single contrast technique. IMPRESSION: Persistent mild small bowel dilatation. However, contrast reached the colon in one hour and 15 minutes. Therefore, there is no evidence for a high-grade small bowel obstruction. The findings suggest a persistent partial small bowel obstruction. Hospital Course (1) Small bowel obstruction: -Suspected to be mechanical -Prior abdominal surgeries include JAVAN with BSO -Was admitted and made n.p.o. for bowel rest -Ambulation encouraged and patient was compliant/cooperative with this -Was given gentle IV hydration -Responded favorably as she started to pass flatus. Despite this, had persistent dilated loops of bowel seen on imaging which was thought to be a radiographic lag -On 02/07, patient had no abdominal discomfort and was passing significant amounts of flatus. Her abdomen was slightly distended but soft. A small bowel follow-through done that showed a partial SBO but normal transit time -Following the SBFT, patient had a very large bowel movement and the abdominal distention resolved. This was thought to be likely not only diagnostic but therapeutic -With resolution of abdominal pain, nausea, vomiting, abdominal distention and development of flatus and having multiple BMspatient was started on clear liquids. This was subsequently further advance to a full liquid diet. -Seen on daily rounds 02/08/2021. Tolerating a full liquid diet. Denies abdominal pain. Abdomen is nondistended. Still passing flatus and having bowel movements (semiformed). -At this point time I feel that she is medically and hemodynamically stable for discharge home with continued full liquid diet to advance as tolerated. 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 Small Bowel Obstruction Activity: Resume your previous activity Non-emergency contact: Primary Care Provider Call non-emergency contact if: you have any medication questions and your symptoms worsen Follow-up/Referrals: Carlos Alberto Armas MD [Primary Care Provider] - 02/13/21 11:00 am (APPT WITH CASSIA GOMES PA-C) Diet: Low Fiber Addtl Attending Provider Instructions: You were hospitalized with a small bowel obstruction This is thought to be secondary to adhesions (scar tissue) related to your old abdominal hysterectomy You should maintain a full liquid diet for the rest of today and slowly work up to a low fiber diet (see handout) Push fluids Avoid extra fiber/roughage. As we discussed, this delays transit time through the bowel and may increase your risk of a repeat obstruction Follow-up with your family practitioner within 7 to 10 days. May consider referral back to general surgery or GI for endoscopy Return to the ED for any new or worsening symptoms Pending Studies at Discharge: No Stand-Alone Forms: [facility] Medications and DC Order Prescriptions: Continued metoprolol tartrate 25 mg tablet 25 mg PO Q12H PRN (Reason: palpitations) Qty: 15 RF: 3 AZO D-Mannose 500 mg capsule 1,000 mg PO BID RF: 0 magnesium oxide 400 mg magnesium capsule 400 mg PO DAILY PRN (Reason: .) RF: 0 multivitamin [Daily Multi-Vitamin] Tablet 1 tab PO QAM RF: 0 Ben Bolt-3 350 mg-235 mg- 90 mg-597 mg Capsule,Delayed Release(Dr/Ec) See Rx Instructions .ROUTE .COMPLEX RF: 0 cyanocobalamin (vitamin B-12) [Vitamin B-12] 1,000 mcg tablet 1,000 mcg PO Q2D RF: 0 ascorbic acid (vitamin C) [Vitamin C] 1,000 mg Tablet 1,000 mg PO QAM RF: 0 lorazepam [Ativan] 0.5 mg tablet 0.5 - 1 mg PO DAILY PRN (Reason: Anxiety) RF: 0 lisinopril [Zestril] 10 mg tablet 10 mg PO QAM RF: 0 cholecalciferol (vitamin D3) [Vitamin D3] 50 mcg (2,000 unit) capsule 3,000 unit PO QAM RF: 0 fluticasone propion-salmeterol [AirDuo RespiClick] 113-14 mcg/actuation aerosol powdr breath activated 1 inh INH BID RF: 0 Discharge Orders: Discharge Order (Routine); Ordered 02/08/21 Ordered By: Tejal Mar/Other Patient Handouts: Low-Fiber Diet Admission Data Admit Date/Time: 02/05/21 15:21 Attending Provider: Alcides Gallardo Admit Provider: Nathan Johns Primary Care Provider: Carlos Alberto Armas Other Providers: Alcides Gallardo Other Interventions: Discharge Summary Assessment (RN) Last Done: 02/08/21 14:59 Supervising Physician Co-Signing Physician Notes I supervised Tejal Díaz PA-C on the care of this patient. I interviewed and examined the patient independently of her. The plan is as written in her note except for any following changes/exceptions: None Feeling well. Tolerating diet. Ready for discharge. Coding Level of Care Code D/C DAY MANAGEMENT >30 MINS Diagnoses Small bowel obstruction K56.609 Diastolic CHF I50.30 Reactive airway disease J45.909 DVT prophylaxis Z29.9 Post-polio syndrome G14 Time Spent (min) 45
== END 2021-02-08 16:13 | disposition home or self-care (01) | DRG 389 ==
LOC: ED 01:58 → EDINP 15:19 → SUATTDRO 15:21 → 3N 19:13